=== PATIENT | male | born 1940 | race Caucasian/White ===

== ENCOUNTER → 2016-06-03 | Outpatient (CLI) | payer MEDICARE, BC ==
--- NOTE | 2016-06-03 17:02 | RADRPT ---
PROCEDURE: XR Right hip and pelvis. CLINICAL INDICATION: Right hip pain and pelvic pain. TECHNIQUE: 3 views. Frontal pelvis. Frontal and lateral right hip. COMPARISON: None. FINDINGS: There is no fracture or dislocation. The soft tissues are normal. There are degenerative changes with osteophytes and superior joint space narrowing involving both hi ps. There are degenerative changes of the lower lumbar spine. There is no lytic lesion. IMPRESSION: 1. Moderate degenerative changes of both hips. 2. Degenerative changes of the lower lumbar spine. 3. Otherwise unremarkable study. RPTAT: QQ .Finn Ponce MD, MD Date Time Electronically viewed and signed by .Finn Ponce MD, MD on 06/03/2016 17:02 .R/
--- NOTE | 2016-06-04 07:16 | HKNOTE ---
DATE OF SERVICE: 06/03/2016 MAIN COMPLAINT: Pain in the right hip. HISTORY OF MAIN COMPLAINT: The patient is a 75-year-old male who complains of pain in his right irma in which has been present for about 3 days. He had some vague pain in the groin before that time ov er the past 6 months or so. He does not know what caused the pain or what suddenly aggravated the pain. Since he has had it, he can hardly walk. The patient complains the pain is in the right groin and is aggravated by walking, weightbearing, an d stair climbing. He does not get any rest pain, but at night he gets which wakes him up. He has b een taking hydrocodone for the pain. He does not have any history of back problems. No numbness or tingling in his legs. He is limited in the distance he can walk at the present time. He does not use a walking aid. He can clip his toenails and tie his shoelaces. He did not play tennis for a fe w days now. PAST ORTHOPEDIC HISTORY: PREVIOUS ORTHOPEDIC OPERATIONS: None. PRIOR CORTISONE INTAKE: The patient had 1 cortisone injection in the past. ALCOHOL INTAKE: None. OTHER JOINT PROBLEMS: Left wrist and both knees. BLOOD TESTS FOR ARTHRITIS: Nonspecific cause, but he has been told that he may have rheumatoid arth ritis. WORK STATUS: The patient works in an office. PAST MEDICAL HISTORY: 1. Mild hypertension. 2. Left wrist arthritis. PAST SURGICAL HISTORY: Appendectomy, knee arthroscopy, shoulder arthroscopy. ALLERGIES TO MEDICATIONS: NONE. MEDICATIONS:. 1. Magnesium 500 mg a day. 2. Baby aspirin 81 mg a day. 3. Atorvastatin 40 mg a day. 4. Tamsulosin once a day. 5. ____ 20 mcg per day. SYSTEMS REVIEW: Occasional difficulty with urination. Hypertension. History of pneumonia. Leakag e of urine: None. Fainting, stroke, tuberculosis: None. HABITS: The patient smoked from 18 to 28. Takes an occasional alcoholic beverage. PHYSICAL EXAMINATION GENERAL: An extremely fit looking and youthful 75-year-old male. His gait is slightly antalgic. H e walks without a walking aid. VITAL SIGNS: Not recorded. HIPS: Examination of the left hip: A full range of motion without pain. Examination of the right hip: 90% of motion is retained, but the patient gets marked pain in the groin on forced flexion, ex ternal rotation, and internal rotation. NEUROLOGIC: Motor examination reveals no muscle deficit in the lower extremities. Deep tendon refle xes in the lower extremities: Right knee jerk plus, left knee jerk plus, right ankle jerk plus, lef t ankle jerk plus. Straight leg raising is negative bilaterally at ____80 degrees. Lasegue and EH tests are negative. IMAGING: Plain x-rays reviewed of the pelvis and hips obtained today in at the [facility] were reviewed. These show approximately 25% to 50% narrowing of both hip joint spaces. T here are affected both proximally and equally. There are no osteophytes, no subchondral sclerosis, and no intraosseous cysts. DISCUSSION: The patient is advised that the pain in her groin aggravated by hip movements is referr ed by the hip pain. The hip joints are approximately equally affected. The closest I can come to make a diagnosis would be an intraosseous problem with the right hip joint . The joint appears to be fairly well maintained, but is 50% better than the other knee. A 75-year-old male with approximately a 6-month history of pain in the right groin which suddenly be came worse in the past few days. 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 MANAGEMENT: Under sterile conditions, 5 mL of 2% lidocaine was injected into the right hip joint. His pain immediately abated. He is able to walk around out in swimming pool. His gait was normal w hen he walked out of the swimming pool and then he got back in the swimming pool. The patient's pain was immediately improved by about 50%. A second injection was then given at [facility] his pain his was 80% improved. 2 mL of Kenalog were injected into his hip joint. Patient was advised remain active. He is a personal friend of mine, and he will call me over the we [employer], not later than 2 weeks from now. He will be seen again as necessary for further treatment. Dictated By: MARIELLE CELAYA/BALDEV Conf#: [id number] DID#: [id number]
== END | disposition home or self-care (01) ==
LOC: HKI 16:39
DX: M16.11 Unilateral primary osteoarthritis, right hip (principal)
CPT/HCPCS: 20610; 73502; G0463; J3301